=== PATIENT | female | born 1955 | race Caucasian/White ===

== ENCOUNTER 2019-02-25 06:43 | Day surgery (SDC) | payer OTHER ==
[2019-02-25] VITALS (15 sets, daily range): BP systolic 122–145; BP diastolic 55–94; PULSE 16–88; RESP 16–29; Ht 149.9 cm; Wt 74.9 kg
[~2019-02-25] VITALS: Ht 149.9 cm; Wt 74.9 kg
[~2019-02-25 06:43] MED LIST: ALBE200T PO
[2019-02-25] MEDS ORDERED: LACTATED RINGER'S 1,000 ML IV SCH (08:00)
[2019-02-25] MEDS ORDERED: MIDAZOLAM 1 MG/ML 2 ML INJ ONE (09:14)
[2019-02-25] MEDS ORDERED: LIDOCAINE 1%/EPI 30 ML INJ ONE (09:23)
[2019-02-25] MEDS ORDERED: ROCURONIUM 50 MG INJ ONE (09:24)
[2019-02-25] MEDS ORDERED: CEFAZOLIN 1 GM INJ ONE (09:24)
[2019-02-25] MEDS ORDERED: SUCCINYLCHOLINE CHLORIDE 100 MG/5 ML SYG IV ONE (09:24)
[2019-02-25] MEDS ORDERED: LIDOCAINE 2% (SDV) 5 ML INJ ONE (09:24)
[2019-02-25] MEDS ORDERED: PROPOFOL 20 ML ONE (09:24)
[2019-02-25] MEDS ORDERED: DEXAMETHASONE 4 MG/ML 5 ML INJ ONE (09:32)
[2019-02-25] MEDS ORDERED: FAMOTIDINE 20 MG INJ ONE (09:32)
[2019-02-25] MEDS ORDERED: ONDANSETRON 4 MG INJ ONE ×2 (09:32→10:37)
[2019-02-25] MEDS ORDERED: SUGAMMADEX SODIUM 200 MG/2 ML VIAL IV ONE ×2 (10:09→10:14)
[2019-02-25] MEDS ORDERED: OXYCODONE/ACETAMINOPHEN (5/325) TAB PO PRN (11:00)
[2019-02-25] MEDS ORDERED: MEPERIDINE 25 MG INJ IV PRN (11:00)
[2019-02-25] MEDS ORDERED: ONDANSETRON 4 MG INJ IV PRN (11:00)
[2019-02-25] MEDS ORDERED: HYDROmorphONE 1 MG/5 ML IV SYRINGE IV PRN ×3 (11:00)
[2019-02-25] MEDS ORDERED: FENTAnyl 50 MCG/ML VIAL IV PRN (11:00)
[2019-02-25] MEDS ORDERED: PROCHLORPERAZINE 10 MG INJ IV PRN (11:00)
[2019-02-25] MEDS ORDERED: DIPHENHYDRAMINE 50 MG INJ IV PRN (11:00)
[2019-02-25] MEDS ORDERED: HYDROmorphONE 1 MG/5 ML IV SYRINGE IV ONE (11:05)
== END 2019-02-25 12:55 | disposition home or self-care (01) ==
LOC: SDS 06:43
PROVIDERS: ATTEND Otolaryngology
DX: E21.0 Primary hyperparathyroidism (principal); E66.9 Obesity, unspecified
CPT/HCPCS: 60500; 88305; 88331; J0690; J1100; J1170; J2250; J2405; J3010; Z7512; Z7610